=== PATIENT | male | born 1985 | race Caucasian/White ===

== ENCOUNTER 2017-10-02 14:53 | Emergency (ER) | payer MEDICAID ==
[2017-10-02] MEDS: IBUPROFEN 800 MG TAB PO (16:33)
[2017-10-02 16:48] LABS: ADD UMIC YES; UR ASCORBIC ACID NEGATIVE (NEGATIVE); UR BILIRUBIN (Dip) 1+ mg/dL (NEGATIVE); UR BLOOD (Dip) 2+ mg/dL (NEGATIVE); UR CLARITY CLOUDY (CLEAR); UR COLOR AMBER (YELLOW); UR GLUCOSE (Dip) NEGATIVE (NEGATIVE); UR KETONES (Dip) TRACE mg/dL (NEGATIVE); UR LEUKOCYTE ESTERASE (Dip) 3+ Leu/ul (NEGATIVE); UR MUCUS MANY /HPF (NONE SEEN); UR NITRITE (Dip) NEGATIVE (NEGATIVE); UR RBC 67 /HPF (0-5); UR SPECIFIC GRAVITY (Dip) 1.026 (1.003-1.030); UR SQUAMOUS EPITHELIAL CELL FEW /HPF (FEW); UR TOTAL PROTEIN (Dip) 2+ mg/dl (NEGATIVE); UR UROBILINOGEN (Dip) 2+ mg/dL (NEGATIVE); UR WBC > 182 /HPF (0-5)
[2017-10-02] MEDS: LIDOCAINE 1% (MDV) 10 ML INJ INFIL (17:21)
[2017-10-02] MEDS: CEFTRIAXONE 1 GM INJ IM (17:22)
== END 2017-10-02 17:47 | disposition home or self-care (01) ==
LOC: FTE 14:53
DX: N45.1 Epididymitis (principal); R00.0 Tachycardia, unspecified
CPT/HCPCS: 76870; 81001; 87086; 87591; 93005; 96372; 99285-25